=== PATIENT | female | born 1955 | race Caucasian/White ===

== ENCOUNTER 2019-07-12 23:51 | Observation (INO) ==
[2019-07-13] MEDS ORDERED: 0.9 % Sodium Chloride 1,000 ML IVC ONE (01:11)
[2019-07-13] MEDS ORDERED: Isovue-370 500 ML BOTTLE IVP ONE (01:17)
[2019-07-13 01:41] LABS: Basophils % 0.1 %; Eosinophils # 0.1 K/mcL (0.0-0.6); Eosinophils % 0.8 %; Hematocrit 46.2 % (35.3-44.9); Hemoglobin 15.1 g/dL (11.5-15.4); Immature Granulocytes % 0.3 % (0-4); Lymphocytes # 1.4 K/mcL (0.6-4.6); Mean Corpuscular HGB Conc 32.7 g/dL (31.6-35.5); Mean Corpuscular Hemoglobin 27.7 pg (28.0-33.3); Mean Corpuscular Volume 84.6 fL (83.0-100.0); Mean Platelet Volume 10.4 fL (9.4-12.4); Monocytes # 0.6 K/mcL (0.0-1.3); Monocytes % 7.8 %; Neutrophils # 5.1 K/mcL (1.6-8.9); Platelet Count 219 K/mcL (140-400); Red Blood Count 5.46 M/mcL (3.82-4.97); Red Cell Distribution Width 14.5 % (11.5-14.5); White Blood Count 7.2 K/mcL (4.3-11.1)
[2019-07-13 01:58] LABS: Alanine Aminotransferase 24 Units/L (7-52); Albumin 4.6 g/dL (3.5-5.7); Albumin/Globulin Ratio 1.6 (1.1-2.2); Alkaline Phosphatase 56 Units/L (34-104); Aspartate Amino Transferase 17 Units/L (13-39); BUN/Creatinine Ratio 14 (6-26); Bilirubin,Direct 0.1 mg/dL (0.0-0.2); Bilirubin,Indirect 0.4 mg/dL (0.0-1.0); Bilirubin,Total 0.5 mg/dL (0.3-1.0); Blood Urea Nitrogen 11 mg/dL (8-23); Calcium 10.3 mg/dL (8.6-10.3); Carbon Dioxide 27 mEq/L (23-29); Chloride 106 mEq/L (98-107); Globulin 2.9 g/dL (2.4-3.5); Glucose 103 mg/dL (70-105); Osmolality,Calculated 292 (280-300); Potassium 3.8 mEq/L (3.5-5.1); Sodium 141 mEq/L (136-145); Total Protein 7.5 g/dL (6.4-8.9); eGFR For African Americans > 60 (> 60); eGFR For Non-African Americans > 60 (> 60)
[2019-07-13 01:59] LABS: Prothrombin Time 10.9 Seconds (9.4-12.1); Troponin I < 0.03 ng/mL (< 0.04)
[2019-07-13] MEDS ORDERED: *HR* LORazepam 2 MG/ML VIAL IVP ONE ×2 (02:00→08:43)
[2019-07-13] MEDS ORDERED: Prochlorperazine 10 MG/2 ML VIAL IVP ONE ×2 (02:24→03:10)
[2019-07-13 03:38] LABS: Bilirubin,Urine Negative (Negative); Blood,Urine Negative (Negative); Clarity,Urine Clear (Clear); Color,Urine Yellow (Yellow); Glucose,Urine (UA) Normal (Normal); Ketones,Urine Negative (Negative); Leukocyte Esterase,Urine Negative (Negative); Nitrite,Urine Negative (Negative); PH,Urine 7.5 pH Units (5.0-8.0); Protein,Urine Negative (Neg-Trace); Specific Gravity,Urine > 1.030 (1.010-1.025); Urobilinogen,Urine Normal (Normal)
[2019-07-13] MEDS ORDERED: Ondansetron ODT 4 MG TAB.RAPDIS SL PRN (04:58)
[2019-07-13] MEDS ORDERED: Naloxone 0.4 MG/ML INJ IVP PRN (04:58)
[2019-07-13] MEDS ORDERED: *HR* Heparin 5,000 UNIT/ML VIAL SQ SCH (06:00)
[2019-07-13 06:23] LABS: Basophils % 0.1 %; Eosinophils # 0.1 K/mcL (0.0-0.6); Eosinophils % 1.3 %; Hematocrit 42.8 % (35.3-44.9); Hemoglobin 14.1 g/dL (11.5-15.4); Immature Granulocytes % 0.2 % (0-4); Lymphocytes # 1.4 K/mcL (0.6-4.6); Lymphocytes % 16.7 %; Mean Corpuscular HGB Conc 32.9 g/dL (31.6-35.5); Mean Corpuscular Hemoglobin 28.3 pg (28.0-33.3); Mean Corpuscular Volume 85.8 fL (83.0-100.0); Mean Platelet Volume 10.8 fL (9.4-12.4); Monocytes # 0.5 K/mcL (0.0-1.3); Neutrophils # 6.3 K/mcL (1.6-8.9); Platelet Count 221 K/mcL (140-400); Red Blood Count 4.99 M/mcL (3.82-4.97); Red Cell Distribution Width 14.6 % (11.5-14.5); Segmented Neutrophils % 75.7 %; White Blood Count 8.3 K/mcL (4.3-11.1)
[2019-07-13 06:37] LABS: Alanine Aminotransferase 19 Units/L (7-52); Albumin/Globulin Ratio 1.7 (1.1-2.2); Alkaline Phosphatase 51 Units/L (34-104); Aspartate Amino Transferase 15 Units/L (13-39); BUN/Creatinine Ratio 16 (6-26); Bilirubin,Total 0.5 mg/dL (0.3-1.0); Blood Urea Nitrogen 11 mg/dL (8-23); Calcium 9.2 mg/dL (8.6-10.3); Carbon Dioxide 23 mEq/L (23-29); Chloride 109 mEq/L (98-107); Chol/HDL Ratio 5.4 (0-4.9); Cholesterol 189 mg/dL (< 200); Globulin 2.4 g/dL (2.4-3.5); Glucose 102 mg/dL (70-105); HDL Cholesterol 35 mg/dL (40-59); LDL Cholesterol,Calculated 100 mg/dL (0-99); Osmolality,Calculated 288 (280-300); Phosphorous 3.1 mg/dL (2.7-4.5); Potassium 3.7 mEq/L (3.5-5.1); Sodium 139 mEq/L (136-145); Total Protein 6.4 g/dL (6.4-8.9); Triglycerides 269 mg/dL (< 150); eGFR For African Americans > 60 (> 60); eGFR For Non-African Americans > 60 (> 60)
[2019-07-13 08:14] VITALS: BP 134/78
[2019-07-13] MEDS ORDERED: lisinopriL 20 MG TABLET PO SCH (09:00)
[2019-07-13] MEDS ORDERED: Loratadine 10 MG TABLET PO SCH (09:00)
[2019-07-13] MEDS ORDERED: Acyclovir 200 MG CAPSULE PO SCH (09:00)
[2019-07-13] MEDS ORDERED: Ascorbic Acid 500 MG TABLET PO SCH (09:00)
[2019-07-13] MEDS ORDERED: Aspirin Enteric Coated 81 MG Tablet PO SCH (09:00)
[2019-07-13] MEDS ORDERED: amLODIPine 5 MG TABLET PO SCH (09:00)
[2019-07-13] MEDS ORDERED: Acetaminophen 325 MG TABLET PO SCH (12:00)
[2019-07-13] MEDS ORDERED: Acetaminophen 325 MG TABLET PO ONE (12:03)
== END 2019-07-13 14:25 | disposition home or self-care (01) ==
LOC: 3BNU 23:51 → EMEROOARM 23:51 → 3BNU 07-13 04:56
PROVIDERS: ADMIT Family Medicine; ATTEND Family Medicine

== ENCOUNTER 2019-12-25 21:46 | Inpatient (IN) ==
[2019-12-25 22:37] LABS: Basophils % 0.1 %; Eosinophils # 0.1 K/mcL (0.0-0.6); Eosinophils % 1.3 %; Hematocrit 43.9 % (35.3-44.9); Hemoglobin 14.3 g/dL (11.5-15.4); Immature Granulocytes % 0.3 % (0-4); Lymphocytes # 1.2 K/mcL (0.6-4.6); Lymphocytes % 17.4 %; Mean Corpuscular HGB Conc 32.6 g/dL (31.6-35.5); Mean Corpuscular Hemoglobin 27.6 pg (28.0-33.3); Mean Corpuscular Volume 84.6 fL (83.0-100.0); Mean Platelet Volume 10.6 fL (9.4-12.4); Monocytes # 0.5 K/mcL (0.0-1.3); Neutrophils # 5.2 K/mcL (1.6-8.9); Platelet Count 234 K/mcL (140-400); Red Blood Count 5.19 M/mcL (3.82-4.97); Segmented Neutrophils % 73.9 %
[2019-12-25 22:46] LABS: Prothrombin Time 11.3 Seconds (9.4-12.1)
[2019-12-25 22:48] LABS: Activated Partial Thrombo Time 37.1 Seconds (26.0-36.0)
[2019-12-25 23:02] LABS: Alanine Aminotransferase 19 Units/L (7-52); Albumin 4.1 g/dL (3.5-5.7); Albumin/Globulin Ratio 1.7 (1.1-2.2); Alkaline Phosphatase 50 Units/L (34-104); Aspartate Amino Transferase 15 Units/L (13-39); BUN/Creatinine Ratio 13 (6-26); Bilirubin,Direct 0.1 mg/dL (0.0-0.2); Bilirubin,Indirect 0.3 mg/dL (0.0-1.0); Bilirubin,Total 0.4 mg/dL (0.3-1.0); Blood Urea Nitrogen 11 mg/dL (8-23); Calcium 9.4 mg/dL (8.6-10.3); Carbon Dioxide 21 mEq/L (23-29); Chloride 107 mEq/L (98-107); Globulin 2.4 g/dL (2.4-3.5); Glucose 116 mg/dL (70-105); Osmolality,Calculated 286 (280-300); Potassium 3.9 mEq/L (3.5-5.1); Sodium 138 mEq/L (136-145); Total Protein 6.5 g/dL (6.4-8.9); Troponin I < 0.03 ng/mL (< 0.04); eGFR For African Americans > 60 (> 60); eGFR For Non-African Americans > 60 (> 60)
[2019-12-25] MEDS ORDERED: Aspirin 81 MG TAB.CHEW PO ONE (23:48)
[2019-12-26 01:40] LABS: Adenovirus Not Detected (Not Detect); Bordetella Pertussis Not Detected (Not Detect); Chlamydophila pneumoniae Not Detected (Not Detect); Coronavirus 229E Not Detected (Not Detect); Coronavirus HKU1 Not Detected (Not Detect); Coronavirus NL63 Not Detected (Not Detect); Coronavirus OC43 Not Detected (Not Detect); Human Metapneumovirus Not Detected (Not Detect); Human Rhinovirus/Enterovirus Not Detected (Not Detect); Influenza A Subtype 2009 H1 Not Detected (Not Detect); Influenza B Not Detected (Not Detect); Mycoplasma pneumoniae Not Detected (Not Detect); Parainfluenza Virus 1 Not Detected (Not Detect); Parainfluenza Virus 2 Not Detected (Not Detect); Parainfluenza Virus 3 Not Detected (Not Detect); Parainfluenza Virus 4 Not Detected (Not Detect); Respiratory Syncytial Virus Not Detected (Not Detect)
[2019-12-26] MEDS ORDERED: Naloxone 0.4 MG/ML INJ IVP PRN (01:56)
[2019-12-26] MEDS: *HR* Fondaparinux 2.5 MG/0.5 ML SYRINGE SQ SCH (02:50)
[2019-12-26] MEDS: *HR* Fondaparinux 7.5 MG/0.6 ML SYRINGE SQ SCH (02:51)
[2019-12-26 02:56] LABS: Prothrombin Time 11.6 Seconds (9.4-12.1)
[2019-12-26 02:57] LABS: Basophils % 0.1 %; Eosinophils # 0.1 K/mcL (0.0-0.6); Hematocrit 45.4 % (35.3-44.9); Hemoglobin 14.7 g/dL (11.5-15.4); Immature Granulocytes % 0.3 % (0-4); Lymphocytes # 1.4 K/mcL (0.6-4.6); Lymphocytes % 15.6 %; Mean Corpuscular HGB Conc 32.4 g/dL (31.6-35.5); Mean Corpuscular Hemoglobin 27.5 pg (28.0-33.3); Mean Corpuscular Volume 84.9 fL (83.0-100.0); Mean Platelet Volume 10.6 fL (9.4-12.4); Monocytes # 0.5 K/mcL (0.0-1.3); Monocytes % 5.6 %; Neutrophils # 6.7 K/mcL (1.6-8.9); Platelet Count 238 K/mcL (140-400); Red Blood Count 5.35 M/mcL (3.82-4.97); Red Cell Distribution Width 14.2 % (11.5-14.5); Segmented Neutrophils % 77.4 %; White Blood Count 8.7 K/mcL (4.3-11.1)
[2019-12-26] MEDS ORDERED: *HR* Warfarin 5 MG TABLET PO ONE (03:00)
[2019-12-26 04:34] LABS: Alanine Aminotransferase 18 Units/L (7-52); Albumin 4.1 g/dL (3.5-5.7); Albumin/Globulin Ratio 1.6 (1.1-2.2); Alkaline Phosphatase 50 Units/L (34-104); Aspartate Amino Transferase 16 Units/L (13-39); BUN/Creatinine Ratio 14 (6-26); Bilirubin,Total 0.5 mg/dL (0.3-1.0); Blood Urea Nitrogen 10 mg/dL (8-23); Calcium 9.5 mg/dL (8.6-10.3); Carbon Dioxide 21 mEq/L (23-29); Chloride 109 mEq/L (98-107); Globulin 2.5 g/dL (2.4-3.5); Glucose 111 mg/dL (70-105); Osmolality,Calculated 290 (280-300); Potassium 4.2 mEq/L (3.5-5.1); Sodium 140 mEq/L (136-145); Total Protein 6.6 g/dL (6.4-8.9); eGFR For African Americans > 60 (> 60); eGFR For Non-African Americans > 60 (> 60)
[2019-12-26 05:57] LABS: Troponin I < 0.03 ng/mL (< 0.04)
[2019-12-26] MEDS ORDERED: *HR* Fondaparinux 2.5 MG/0.5 ML SYRINGE SQ SCH (06:00)
[2019-12-26] MEDS: DilTIAZem SR (12hr) 60 MG CAP.ER.12H PO SCH ×3 (08:41→20:28)
[2019-12-26] MEDS: Azithromycin 250 MG TABLET PO SCH ×3 (08:41→20:29)
[2019-12-26 09:45] LABS: Thyroid Stimulating Hormone 2.973 mcIU/mL (0.340-5.600)
[2019-12-26] MEDS ORDERED: Warfarin perPT PO PRN (18:00)
[2019-12-26] MEDS ORDERED: *HR* Warfarin 3 MG TABLET PO ONE (18:00)
[2019-12-26] MEDS ORDERED: Loratadine 10 MG TABLET PO ONE (22:37)
[2019-12-26] MEDS ORDERED: *HR* Fondaparinux 7.5 MG/0.6 ML SYRINGE SQ SCH (23:56)
[2019-12-27 03:48] LABS: INR 1.1
[2019-12-27] MEDS: *HR* Fondaparinux 2.5 MG/0.5 ML SYRINGE SQ SCH (04:57)
[2019-12-27] MEDS: *HR* Fondaparinux 7.5 MG/0.6 ML SYRINGE SQ SCH (04:57)
[2019-12-27] MEDS ORDERED: Regadenoson 0.4 MG/5 ML SYRINGE IVP ONE (05:59)
[2019-12-27] MEDS ORDERED: Perflutren Lipid Microsphere 1.3 ML in 0.9 % Sodium Chloride 8.7 ML IVP PRN (09:36)
[2019-12-27] MEDS ORDERED: *HR* Warfarin 5 MG TABLET PO ONE (18:00)
[2019-12-27] MEDS: Azithromycin 250 MG TABLET PO SCH (21:05)
[2019-12-28 04:13] LABS: INR 1.1; Prothrombin Time 12.6 Seconds (9.4-12.1)
[2019-12-28] MEDS: *HR* Fondaparinux 2.5 MG/0.5 ML SYRINGE SQ SCH (06:12)
[2019-12-28] MEDS: *HR* Fondaparinux 7.5 MG/0.6 ML SYRINGE SQ SCH (06:13)
[2019-12-28 11:09] VITALS: BP 115/76
== END 2019-12-28 13:09 | disposition home or self-care (01) | DRG 310 ==
LOC: EMEROOARM 21:46 → 3BNU 21:46
PROVIDERS: ADMIT Internal Medicine; ATTEND Student in an Organized Health Care Education/Training Program

== ENCOUNTER 2020-01-16 16:48 | Inpatient (IN) ==
[2020-01-16] MEDS ORDERED: Aspirin 81 MG TAB.CHEW PO ONE (17:21)
[2020-01-16 17:52] LABS: Basophils % 0.3 %; Eosinophils # 0.1 K/mcL (0.0-0.6); Eosinophils % 0.9 %; Hematocrit 44.5 % (35.3-44.9); Hemoglobin 14.3 g/dL (11.5-15.4); Immature Granulocytes % 0.3 % (0-4); Lymphocytes # 0.9 K/mcL (0.6-4.6); Lymphocytes % 14.2 %; Mean Corpuscular HGB Conc 32.1 g/dL (31.6-35.5); Mean Corpuscular Hemoglobin 27.4 pg (28.0-33.3); Mean Corpuscular Volume 85.2 fL (83.0-100.0); Mean Platelet Volume 11.4 fL (9.4-12.4); Monocytes # 0.4 K/mcL (0.0-1.3); Monocytes % 6.6 %; Neutrophils # 5.2 K/mcL (1.6-8.9); Platelet Count 213 K/mcL (140-400); Red Blood Count 5.22 M/mcL (3.82-4.97); Red Cell Distribution Width 14.2 % (11.5-14.5); Segmented Neutrophils % 77.7 %; White Blood Count 6.6 K/mcL (4.3-11.1)
[2020-01-16 18:01] LABS: INR 1.8; Prothrombin Time 19.9 Seconds (9.4-12.1)
[2020-01-16 18:03] LABS: Activated Partial Thrombo Time 44.5 Seconds (26.0-36.0)
[2020-01-16 18:15] LABS: BUN/Creatinine Ratio 9 (6-26); Blood Urea Nitrogen 7 mg/dL (8-23); Calcium 9.5 mg/dL (8.6-10.3); Carbon Dioxide 24 mEq/L (23-29); Chloride 110 mEq/L (98-107); Glucose 109 mg/dL (70-105); Osmolality,Calculated 293 (280-300); Potassium 3.8 mEq/L (3.5-5.1); Sodium 142 mEq/L (136-145); eGFR For African Americans > 60 (> 60); eGFR For Non-African Americans > 60 (> 60)
[2020-01-16 18:16] LABS: Troponin I < 0.03 ng/mL (< 0.04)
[2020-01-16] MEDS ORDERED: Naloxone 0.4 MG/ML INJ IVP PRN (19:14)
[2020-01-16] MEDS ORDERED: Ondansetron 4 MG/2 ML VIAL IVP PRN (19:14)
[2020-01-16] MEDS ORDERED: *HR* Warfarin 2.5 MG TABLET PO ONE (21:00)
[2020-01-17 05:34] LABS: Hematocrit 40.9 % (35.3-44.9); Mean Corpuscular HGB Conc 31.8 g/dL (31.6-35.5); Mean Corpuscular Hemoglobin 27.4 pg (28.0-33.3); Mean Corpuscular Volume 86.3 fL (83.0-100.0); Mean Platelet Volume 11.4 fL (9.4-12.4); Platelet Count 191 K/mcL (140-400); Red Blood Count 4.74 M/mcL (3.82-4.97); Red Cell Distribution Width 14.2 % (11.5-14.5); White Blood Count 7.5 K/mcL (4.3-11.1)
[2020-01-17 05:38] LABS: INR 1.8; Prothrombin Time 20.9 Seconds (9.4-12.1)
[2020-01-17 05:54] LABS: Alanine Aminotransferase 42 Units/L (7-52); Albumin 3.7 g/dL (3.5-5.7); Albumin/Globulin Ratio 2.1 (1.1-2.2); Alkaline Phosphatase 54 Units/L (34-104); Aspartate Amino Transferase 17 Units/L (13-39); BUN/Creatinine Ratio 12 (6-26); Bilirubin,Total 0.5 mg/dL (0.3-1.0); Blood Urea Nitrogen 12 mg/dL (8-23); Calcium 9.2 mg/dL (8.6-10.3); Carbon Dioxide 24 mEq/L (23-29); Chloride 111 mEq/L (98-107); Chol/HDL Ratio 4.6 (0-4.9); Cholesterol 130 mg/dL (< 200); Globulin 1.8 g/dL (2.4-3.5); Glucose 123 mg/dL (70-105); HDL Cholesterol 28 mg/dL (40-59); LDL Cholesterol,Calculated 76 mg/dL (< 100); Osmolality,Calculated 295 (280-300); Potassium 3.9 mEq/L (3.5-5.1); Sodium 142 mEq/L (136-145); Total Protein 5.5 g/dL (6.4-8.9); Triglycerides 130 mg/dL (< 150); eGFR For African Americans > 60 (> 60); eGFR For Non-African Americans 56 (> 60)
[2020-01-17] MEDS ORDERED: Regadenoson 0.4 MG/5 ML SYRINGE IVP ONE (06:12)
[2020-01-17] MEDS: Ascorbic Acid 500 MG TABLET PO SCH (08:40)
[2020-01-17] MEDS ORDERED: Loratadine 10 MG TABLET PO SCH (09:00)
[2020-01-17] MEDS ORDERED: lisinopriL 20 MG TABLET PO SCH (09:00)
[2020-01-17] MEDS ORDERED: Furosemide 20 MG/2 ML VIAL IVP ONE ×2 (11:22→21:00)
[2020-01-17] MEDS ORDERED: *HR* LORazepam 2 MG/ML VIAL IVP ONE (11:22)
[2020-01-17] MEDS: lisinopriL 20 MG TABLET PO SCH ×2 (11:43→21:04)
[2020-01-17] MEDS ORDERED: Acetaminophen 325 MG TABLET PO PRN (13:22)
[2020-01-17] MEDS: Ipratropium/Albuterol Neb 3 ML IH SCH ×4 (15:40→23:40)
[2020-01-17] MEDS ORDERED: Warfarin perPT PO PRN (18:00)
[2020-01-17] MEDS ORDERED: *HR* Warfarin 5 MG TABLET PO ONE (18:00)
[2020-01-17] MEDS: *HR* Fondaparinux 2.5 MG/0.5 ML SYRINGE SQ SCH (18:18)
[2020-01-17] MEDS: Loratadine 10 MG TABLET PO SCH (21:03)
[2020-01-17] MEDS: *HR* Fondaparinux 7.5 MG/0.6 ML SYRINGE SQ SCH (21:38)
[2020-01-18 03:18] LABS: INR 1.9; Prothrombin Time 21.5 Seconds (9.4-12.1)
[2020-01-18 03:21] LABS: Basophils % 0.1 %; Eosinophils # 0.1 K/mcL (0.0-0.6); Eosinophils % 0.9 %; Hemoglobin 13.6 g/dL (11.5-15.4); Immature Granulocytes % 0.1 % (0-4); Lymphocytes # 1.3 K/mcL (0.6-4.6); Lymphocytes % 15.8 %; Mean Corpuscular HGB Conc 32.4 g/dL (31.6-35.5); Mean Corpuscular Hemoglobin 27.9 pg (28.0-33.3); Mean Corpuscular Volume 86.2 fL (83.0-100.0); Mean Platelet Volume 11.5 fL (9.4-12.4); Monocytes # 0.5 K/mcL (0.0-1.3); Monocytes % 6.7 %; Neutrophils # 6.1 K/mcL (1.6-8.9); Platelet Count 202 K/mcL (140-400); Red Blood Count 4.87 M/mcL (3.82-4.97); Red Cell Distribution Width 14.5 % (11.5-14.5); Segmented Neutrophils % 76.4 %
[2020-01-18] MEDS: Ipratropium/Albuterol Neb 3 ML IH SCH ×6 (03:26→23:39)
[2020-01-18 03:36] LABS: BUN/Creatinine Ratio 14 (6-26); Blood Urea Nitrogen 12 mg/dL (8-23); Calcium 9.3 mg/dL (8.6-10.3); Carbon Dioxide 21 mEq/L (23-29); Chloride 108 mEq/L (98-107); Glucose 108 mg/dL (70-105); Osmolality,Calculated 292 (280-300); Potassium 3.2 mEq/L (3.5-5.1); Sodium 141 mEq/L (136-145); eGFR For African Americans > 60 (> 60); eGFR For Non-African Americans > 60 (> 60)
[2020-01-18] MEDS ORDERED: *HR* LORazepam 2 MG/ML VIAL IVP ONE (08:00)
[2020-01-18] MEDS ORDERED: Potassium Chloride 40 MEQ, Lidocaine 1% 2 ML in 0.9 % Sodium Chloride 500 ML IVPB ONE (09:17)
[2020-01-18] MEDS: lisinopriL 20 MG TABLET PO SCH ×2 (09:45→20:27)
[2020-01-18] MEDS: Ascorbic Acid 500 MG TABLET PO SCH (09:46)
[2020-01-18] MEDS: OMEPRAZOLE 20 MG TAB PO SCH ×2 (09:58→17:18)
[2020-01-18] MEDS ORDERED: Furosemide 20 MG/2 ML VIAL IVP ONE (11:07)
[2020-01-18] MEDS: predniSONE 20 MG TABLET PO SCH (16:34)
[2020-01-18] MEDS: *HR* Fondaparinux 2.5 MG/0.5 ML SYRINGE SQ SCH ×2 (17:22→17:29)
[2020-01-18] MEDS: *HR* Fondaparinux 7.5 MG/0.6 ML SYRINGE SQ SCH ×2 (17:22→17:29)
[2020-01-18] MEDS ORDERED: *HR* Warfarin 2.5 MG TABLET PO ONE (18:00)
[2020-01-18] MEDS: Loratadine 10 MG TABLET PO SCH (20:27)
[2020-01-19] MEDS: Ipratropium/Albuterol Neb 3 ML IH SCH ×6 (03:20→23:33)
[2020-01-19 03:26] LABS: INR 1.7; Prothrombin Time 19.1 Seconds (9.4-12.1)
[2020-01-19 03:32] LABS: Basophils % 0.1 %; Hematocrit 44.4 % (35.3-44.9); Hemoglobin 14.2 g/dL (11.5-15.4); Immature Granulocytes % 0.3 % (0-4); Lymphocytes # 0.2 K/mcL (0.6-4.6); Lymphocytes % 2.7 %; Mean Corpuscular Hemoglobin 27.9 pg (28.0-33.3); Mean Corpuscular Volume 87.2 fL (83.0-100.0); Mean Platelet Volume 11.3 fL (9.4-12.4); Monocytes # 0.1 K/mcL (0.0-1.3); Monocytes % 0.9 %; Neutrophils # 8.6 K/mcL (1.6-8.9); Platelet Count 209 K/mcL (140-400); Red Blood Count 5.09 M/mcL (3.82-4.97); Red Cell Distribution Width 14.7 % (11.5-14.5); White Blood Count 8.9 K/mcL (4.3-11.1)
[2020-01-19 03:51] LABS: BUN/Creatinine Ratio 23 (6-26); Blood Urea Nitrogen 22 mg/dL (8-23); Calcium 9.8 mg/dL (8.6-10.3); Carbon Dioxide 21 mEq/L (23-29); Chloride 108 mEq/L (98-107); Glucose 171 mg/dL (70-105); Osmolality,Calculated 295 (280-300); Potassium 4.1 mEq/L (3.5-5.1); Sodium 139 mEq/L (136-145); eGFR For African Americans > 60 (> 60); eGFR For Non-African Americans 60 (> 60)
[2020-01-19] MEDS: lisinopriL 20 MG TABLET PO SCH ×2 (07:54→19:48)
[2020-01-19] MEDS: predniSONE 20 MG TABLET PO SCH ×2 (07:54→17:26)
[2020-01-19] MEDS: Ascorbic Acid 500 MG TABLET PO SCH (07:54)
[2020-01-19] MEDS: *HR* Fondaparinux 2.5 MG/0.5 ML SYRINGE SQ SCH (16:17)
[2020-01-19] MEDS: *HR* Fondaparinux 7.5 MG/0.6 ML SYRINGE SQ SCH (16:17)
[2020-01-19] MEDS ORDERED: OMEPRAZOLE 20 MG TAB PO SCH (17:00)
[2020-01-19] MEDS: Loratadine 10 MG TABLET PO SCH (19:47)
[2020-01-19] MEDS ORDERED: Saline Nasal Spray 44 ML BOTTLE NS PRN (20:48)
[2020-01-20 01:22] LABS: Eosinophils % 0.1 %; Hematocrit 43.7 % (35.3-44.9); Hemoglobin 14.1 g/dL (11.5-15.4); Immature Granulocytes % 0.6 % (0-4); Lymphocytes # 0.4 K/mcL (0.6-4.6); Lymphocytes % 2.4 %; Mean Corpuscular HGB Conc 32.3 g/dL (31.6-35.5); Mean Corpuscular Hemoglobin 28.1 pg (28.0-33.3); Mean Corpuscular Volume 87.1 fL (83.0-100.0); Mean Platelet Volume 11.5 fL (9.4-12.4); Monocytes # 0.3 K/mcL (0.0-1.3); Platelet Count 232 K/mcL (140-400); Red Blood Count 5.02 M/mcL (3.82-4.97); Segmented Neutrophils % 94.9 %
[2020-01-20 01:24] LABS: White Blood Count 15.8 K/mcL (4.3-11.1)
[2020-01-20 01:27] LABS: INR 1.4; Prothrombin Time 16.4 Seconds (9.4-12.1)
[2020-01-20 01:42] LABS: BUN/Creatinine Ratio 23 (6-26); Blood Urea Nitrogen 22 mg/dL (8-23); Calcium 10.4 mg/dL (8.6-10.3); Carbon Dioxide 20 mEq/L (23-29); Chloride 106 mEq/L (98-107); Glucose 158 mg/dL (70-105); Osmolality,Calculated 289 (280-300); Potassium 4.3 mEq/L (3.5-5.1); Sodium 136 mEq/L (136-145); eGFR For African Americans > 60 (> 60); eGFR For Non-African Americans 59 (> 60)
[2020-01-20] MEDS: Ipratropium/Albuterol Neb 3 ML IH SCH ×4 (04:00→15:53)
[2020-01-20] MEDS ORDERED: *HR* LORazepam 2 MG/ML VIAL IVP ONE (06:53)
[2020-01-20] MEDS: Ascorbic Acid 500 MG TABLET PO SCH (07:24)
[2020-01-20] MEDS: predniSONE 20 MG TABLET PO SCH (07:25)
[2020-01-20] MEDS: lisinopriL 20 MG TABLET PO SCH (07:26)
[2020-01-20] MEDS ORDERED: Nitroglycerin 1,000 MCG/10 ML VIAL IV ONE (11:57)
[2020-01-20] MEDS ORDERED: 0.9 % Sodium Chloride 1,000 ML ONE ×2 (11:57→11:58)
[2020-01-20] MEDS ORDERED: ISOVUE-370 200 ML INFUS..BTL ONE (11:57)
[2020-01-20] MEDS ORDERED: 0.9 % Sodium Chloride 500 ML ONE (11:57)
[2020-01-20] MEDS ORDERED: *HR* Bivalirudin 250 MG VIAL IVC ONE (12:39)
[2020-01-20] MEDS ORDERED: *HR* FentaNYL (PF) 100 MCG/2 ML VIAL ONE (12:45)
[2020-01-20] MEDS ORDERED: *HR* Midazolam HCl 2 MG/2 ML VIAL ONE (12:45)
[2020-01-20 12:48] LABS: Bilirubin,Urine Negative (Negative); Blood,Urine Negative (Negative); Clarity,Urine Clear (Clear); Color,Urine Light-Yellow (Yellow); Glucose,Urine (UA) Normal (Normal); Ketones,Urine Negative (Negative); Leukocyte Esterase,Urine Negative (Negative); Nitrite,Urine Negative (Negative); Protein,Urine Negative (Neg-Trace); Specific Gravity,Urine 1.017 (1.010-1.025); Urobilinogen,Urine Normal (Normal)
[2020-01-20 15:24] VITALS: BP 101/67
[2020-01-20] MEDS ORDERED: *HR* Warfarin 5 MG TABLET PO ONE (18:00)
[2020-01-20] MEDS ORDERED: Warfarin perPT PO PRN (18:00)
[2020-01-21] MEDS ORDERED: Aspirin 81 MG TAB.CHEW PO SCH (09:00)
== END 2020-01-20 17:42 | disposition home health service (06) | DRG 287 ==
LOC: EMEROOARM 16:48 → 3BNU 16:48 → SUATTDRO 19:29 → 3BNU 20:22
PROVIDERS: ADMIT Family Medicine; ATTEND Internal Medicine